=== PATIENT | female | born 1940 | race Caucasian/White ===

== ENCOUNTER 2017-07-27 17:45 | Emergency (ER) | payer MEDICARE, OTHER ==
[~2017-07-27] VITALS: Ht 157.5 cm; Wt 58.1 kg
--- NOTE | 2017-07-27 19:04 | ED Fall/Injury ---
General Stated Complaint: FALL,R WRIST PAIN Source: patient, family Exam Limitations: clinical condition History of Present Illness Date Seen by Provider: Jul 27, 2017 Time Seen by Provider: 18:50 Initial Comments The patient presents to the ER by private conveyance with her significant family and chief complaint that she was out fishing and got tripped up and some fishing line and fell. She thinks she struck her head just lateral whole incident and was rather dizzy afterwards and this concerned her daughter so they brought her to the ER. She does have a history of MS, psoriasis, rheumatoid arthritis and osteoarthritis. She took one of her hydrocodone's and this did not really help the pain in her right wrist. She has some swelling that started up in her right wrist as well. She has no previous injury to this wrist. A little bit of tenderness in her right elbow that is radiating from the wrist. She has a skin tear on her right elbow. She has some minor abrasions on her legs. She is having no dysuria, nausea, fevers chills cough shortness of breath or chest pain. Allergies and Home Medications Allergies Coded Allergies: No Known Drug Allergies (Unverified , 07/27/17) Patient Home Medication List Home Medication List Reviewed: Yes Review of Systems Constitutional: No chills; dizziness (afterwards); No fever, No malaise Eyes: Denies Blindness, Denies Blurred Vision Ears, Nose, Mouth, Throat: denies ear pain, denies ear discharge Respiratory: No cough, No short of breath Cardiovascular: No chest pain, No edema Gastrointestinal: No abdominal pain, No constipation, No diarrhea, No nausea Genitourinary: No discharge, No dysuria Past Rlcuici-Xkaeeu-Sxrweg Hx Patient Social History Alcohol Use: Denies Use Recreational Drug Use: No Smoking Status: Never a Smoker Recent Foreign Travel: No Contact w/Someone Who Travel: No Physical Exam Vital Signs Capillary Refill : General Appearance: WD/WN, no apparent distress HEENT: PERRL/EOMI, pharynx normal Neck: non-tender, full range of motion, supple, normal inspection Cardiovascular: normal peripheral pulses, regular rate, rhythm, no edema Respiratory: chest non-tender, lungs clear, normal breath sounds, no respiratory distress, no accessory muscle use Peripheral Pulses: 2+ Radial Pulses (R), 2+ Radial Pulses (L) Gastrointestinal: normal bowel sounds, non tender, soft, no organomegaly Extremities: normal range of motion, normal capillary refill, other (swelling, deformity and tenderness of the right wrist. Abrasion and small superficial skin tear on the right elbow. Small abrasions that are superficial on bilateral anterior lower extremity.) Neurologic/Psychiatric: alert, normal mood/affect, oriented x 3 Gregory Coma Score Best Eye Response: (4) Open Spontaneously Best Verbal Response: (5) Oriented Best Motor Response: (6) Obeys Commands Gregory Total: 15 Progress/Results/Core Measures Results/Orders My Orders Orders - DIAN ERWIN Wrist, Right, 3 Views Or More (07/27/17 18:55) Ct Head/Cervical Spine Wo (07/27/17 19:00) Elbow, Right, 3 Views (07/27/17 19:00) Fentanyl Injection (Sublimaze Injection (07/27/17 19:15) Fentanyl Injection (Sublimaze Injection (07/27/17 19:15) Ketorolac Injection (Toradol Injection) (07/27/17 20:30) Medications Given in ED Current Medications Medications Dose Ordered Sig/Fredo Route Start Time Stop Time Status Last Admin Dose Admin Fentanyl Citrate 50 mcg ONCE ONCE INJ 07/27/17 19:15 07/27/17 19:16 DC 07/27/17 19:09 50 MCG Progress Progress Note : Time: 20:29 Progress Note Reverse her tong splint and Toradol. The fentanyl did not help her pain very much. Diagnostic Imaging Diagonstic Imaging: Xray Plain Films/CT/US/NM/MRI: elbow Comments NAME: KARTHIKEYAN MAGDALENO [facility] REC#: [id number] PHYSICIAN: DIAN ERWIN MD CC: LINDA SILVERIO MD; DIAN ERWIN Page 1 of 1 RADIOLOGY REPORT VIA [place], [place] CC: LINDA SILVERIO MD; DIAN ERWIN Page 1 of 1 RADIOLOGY REPORT NAME: KARTHIKEYAN MAGDALENO [facility] REC#: [id number] PT STATUS: REG ER : 1940 PHYSICIAN: DIAN ERWIN MD ADMIT DATE: 07/27/17/ER Signed Date of Exam: 07/27/17 ELBOW, RIGHT, 3 VIEWS INDICATION: Fall. Right elbow pain. EXAMINATION: Three views of the right elbow were obtained. FINDINGS: The radius and ulna are in good alignment with capitellum and trochlea. No cortical fractures are demonstrated. There is no joint effusion. There is some soft tissue calcification adjacent to the lateral condyle consistent with old epicondylar ligamentous trauma. IMPRESSION: No acute abnormality is demonstrated. Dictated by: Dictated on workstation # [id number] Dict: 07/27/171934 Trans: 07/27/171938 Interpreted by: LINDA SILVERIO MD Electronically signed by: LINDA SILVERIO MD 07/27/171938 Reviewed: Reviewed by Me Diagonstic Imaging: CT Plain Films/CT/US/NM/MRI: c-spine, head Comments NAME: KARHTIKEYAN MAGDALENO [facility] REC#: [id number] PHYSICIAN: DIAN ERWIN MD CC: LINDA SILVERIO MD; DIAN ERWIN Page 2 of 2 RADIOLOGY REPORT VIA [place], [place] CC: LINDA SILVERIO MD; DIAN ERWIN Page 1 of 1 RADIOLOGY REPORT NAME: KARTHIKEYAN MAGDALENO [facility] REC#: [id number] PT STATUS: REG ER : 1940 PHYSICIAN: DIAN ERWIN MD ADMIT DATE: 07/27/17/ER Signed Date of Exam: 07/27/17 CT HEAD/CERVICAL SPINE WO PROCEDURE: CT head and CT cervical spine without contrast. TECHNIQUE: Multiple contiguous axial images were obtained through the brain and cervical spine without the use of intravenous contrast. Sagittal and coronal reformations through the cervical spine were then performed. CT head without contrast. CT cervical spine films are not currently available for review. FINDINGS: There is no evidence of intracranial hemorrhage. Ventricles and cortical gyral pattern are normal. There are diffuse periventricular white matter changes consistent with chronic small vessel disease. Basal cisterns are clear. CP angles are normal. No extra-axial fluid collections. Bone windows show no evidence of the fracture. Mastoid air cells are well-aerated and clear. IMPRESSION: 1. No acute intracranial abnormalities. 2. Cortical atrophy with diffuse white matter changes consistent with chronic small vessel disease. Dictated by: Dictated on workstation # [id number] Dict: 07/27/171925 Trans: 07/27/171938 Interpreted by: LINDA SILVERIO MD Electronically signed by: LINDA SILVERIO MD 07/27/171938 Reviewed: Reviewed by Me Diagonstic Imaging: Xray Plain Films/CT/US/NM/MRI: other (wrist) Comments NAME: KARTHIKEYAN MAGDALENO [facility] REC#: [id number] PHYSICIAN: DIAN ERWIN MD CC: LINDA SILVERIO MD; DIAN ERWIN Page 1 of 1 RADIOLOGY REPORT VIA [facility]. [place], [place] CC: LINDA SILVERIO MD; DIAN ERWIN Page 1 of 1 RADIOLOGY REPORT NAME: KARTHIKEYAN MAGDALEON [facility] REC#: [id number] PT STATUS: REG ER : 1940 PHYSICIAN: DIAN ERWIN MD ADMIT DATE: 07/27/17/ER Signed Date of Exam: 07/27/17 WRIST, RIGHT, 3 VIEWS OR MORE INDICATION: Fall. Right wrist pain. EXAMINATION: Three views of the right wrist were obtained. FINDINGS: The radiocarpal joint is in good alignment. Carpal bones show no evidence of subluxation. Diffuse degenerative arthritic changes are noted. There is chondrocalcinosis of the triangle fibrocartilage. There is an articular fracture present along the lateral aspect of the distal radius. This does not appear to be displaced. There is subcortical cystic change along the lateral aspect of the scaphoid. IMPRESSION: 1. Intra-articular fracture along the lateral aspect of the distal right radius. 2. Diffuse degenerative arthritic changes. Dictated by: Dictated on workstation # [id number] Dict: 07/27/171930 Trans: 07/27/171938 Interpreted by: LINDA SILVERIO MD Electronically signed by: LINDA SILVERIO MD 07/27/171938 Reviewed: Reviewed by Me Departure Impression Primary Impression: Fracture of radius Qualified Codes: S52.571A - Other intraarticular fracture of lower end of right radius, initial encounter for closed fracture Disposition: HOME, SELF-CARE Condition: Stable Departure-Patient Inst. Decision time for Depature: 20:29 Referrals: RENAY TOWNSEND MD (PCP) Primary Care Physician RENAY CID MD Patient Instructions: Wrist Fracture (DC) Add. Discharge Instructions: Please call Drs. Cid at his clinic Saturday morning and request an appointment to be seen that week. Keep this went on. If he has increased swelling pain or redness or discoloration of your hand you should take the splint off raise above the level of your heart and apply ice and follow-up sooner or return to the ER if it does not improve in about 20 minutes. Apply ice over the fracture for 20 minutes every 4 hours for the first 3 days. Use Tylenol 1000 mg every 8 hours in addition to ibuprofen 800 mg every 8 hours. If this does not help you can use 1 or 2 hydrocodone tablets every 6 hours as needed. Scripts Oxycodone HCl/Acetaminophen (Oxycodone-Acetaminophen 5-325) 1 Each Tablet 1-2 EACH PO Q6H PRN for BREAKTHROUGH PAIN, #20 TAB 0 Refills Prov: DIAN ERWIN 07/27/17 Copy Copies To 1: RENAY CID MD, TITUS J Jul 27, 2017 19:04
[2017-07-27] MEDS ORDERED: fentaNYL INJECTION 100 MCG/2 ML AMP IJ ONE (19:15)
[2017-07-27] MEDS ORDERED: fentaNYL INJECTION 100 MCG/2 ML AMP INJ ONE (19:15)
--- NOTE | 2017-07-27 19:33 | Diagnostic Imaging Report ---
PROCEDURE: CT head and CT cervical spine without contrast. TECHNIQUE: Multiple contiguous axial images were obtained through the brain and cervical spine without the use of intravenous contrast. Sagittal and coronal reformations through the cervical spine were then performed. CT head without contrast. CT cervical spine films are not currently available for review. FINDINGS: There is no evidence of intracranial hemorrhage. Ventricles and cortical gyral pattern are normal. There are diffuse periventricular white matter changes consistent with chronic small vessel disease. Basal cisterns are clear. CP angles are normal. No extra-axial fluid collections. Bone windows show no evidence of the fracture. Mastoid air cells are well-aerated and clear. IMPRESSION: 1. No acute intracranial abnormalities. 2. Cortical atrophy with diffuse white matter changes consistent with chronic small vessel disease. Dictated by: Dictated on workstation # [id number]
--- NOTE | 2017-07-27 19:39 | Diagnostic Imaging Report ---
INDICATION: Fall. Right wrist pain. EXAMINATION: Three views of the right wrist were obtained. FINDINGS: The radiocarpal joint is in good alignment. Carpal bones show no evidence of subluxation. Diffuse degenerative arthritic changes are noted. There is chondrocalcinosis of the triangle fibrocartilage. There is an articular fracture present along the lateral aspect of the distal radius. This does not appear to be displaced. There is subcortical cystic change along the lateral aspect of the scaphoid. IMPRESSION: 1. Intra-articular fracture along the lateral aspect of the distal right radius. 2. Diffuse degenerative arthritic changes. Dictated by: Dictated on workstation # [id number]
--- NOTE | 2017-07-27 19:42 | Diagnostic Imaging Report ---
INDICATION: Fall. Right elbow pain. EXAMINATION: Three views of the right elbow were obtained. FINDINGS: The radius and ulna are in good alignment with capitellum and trochlea. No cortical fractures are demonstrated. There is no joint effusion. There is some soft tissue calcification adjacent to the lateral condyle consistent with old epicondylar ligamentous trauma. IMPRESSION: No acute abnormality is demonstrated. Dictated by: Dictated on workstation # [id number]
[2017-07-27] MEDS ORDERED: KETOROLAC 30 MG/ML VIAL IVP ONE (20:30)
[2017-07-27] MEDS ORDERED: OXYC-471 PO (20:30)
[2017-07-27 20:48] VITALS: BP 172/81
== END 2017-07-27 20:48 | disposition home or self-care (01) ==
LOC: EDUNIT# 17:45 → ER 17:47
DX: S52.571A Other intraarticular fracture of lower end of right radius, initial encounter for closed fracture (principal); R40.2142 Coma scale, eyes open, spontaneous, at arrival to emergency department; R40.2252 Coma scale, best verbal response, oriented, at arrival to emergency department; R40.2362 Coma scale, best motor response, obeys commands, at arrival to emergency department; M06.9 Rheumatoid arthritis, unspecified; W18.09XA Striking against other object with subsequent fall, initial encounter
CPT/HCPCS: 29105; 70450; 72125; 73080; 73110; 96372; 96374

== ENCOUNTER 2020-09-18 15:41 | Emergency (ER) | payer MEDICARE, OTHER ==
[~2020-09-18] VITALS: Ht 157 cm; Wt 65.0 kg
[~2020-09-18 15:41] MED LIST: OXYC1TAB11 PO
[2020-09-18] MEDS ORDERED: ASPIRIN 81 MG CHEW (CHILDREN'S ASA) PO ONE (16:00)
[2020-09-18] MEDS ORDERED: LACTATED RINGERS 1,000 ML IV ONE (16:01)
[2020-09-18] MEDS ORDERED: MECLIZINE 25 MG (ANTIVERT) TAB ONE (16:02)
[2020-09-18 16:13] LABS: BASOPHILS % (AUTO) 0 % (0-10); BILIRUBIN,URINE NEGATIVE (NEGATIVE); CLARITY,URINE CLEAR; COLOR,URINE YELLOW; EOSINOPHILS # (AUTO) 0.2 10^3/uL (0.0-0.3); EOSINOPHILS % (AUTO) 2 % (0-10); GLUCOSE, URINE (UA) NEGATIVE (NEGATIVE); HEMATOCRIT 42 % (35-52); HEMOGLOBIN 13.7 g/dL (11.5-16.0); KETONES,URINE NEGATIVE (NEGATIVE); LEUKOCYTE ESTERASE ,URINE TRACE (NEGATIVE); LYMPHOCYTES # (AUTO) 2.2 10^3/uL (1.0-4.0); LYMPHOCYTES % (AUTO) 31 % (12-44); MEAN CORPUSCULAR HEMOGLOBIN 28 pg (25-34); MEAN CORPUSCULAR HGB CONC 33 g/dL (32-36); MEAN CORPUSCULAR VOLUME 85 fL (80-99); MONOCYTES # (AUTO) 0.6 10^3/uL (0.0-1.0); MONOCYTES % (AUTO) 9 % (0-12); NEUTROPHILS # (AUTO) 4.1 10^3/uL (1.8-7.8); NEUTROPHILS % (AUTO) 58 % (42-75); NITRITE,URINE NEGATIVE (NEGATIVE); PH,URINE 5.5 (5-9); PLATELET COUNT 373 10^3/uL (130-400); PROTEIN,URINE NEGATIVE (NEGATIVE); WHITE BLOOD COUNT 7.2 10^3/uL (4.3-11.0)
[2020-09-18] MEDS ORDERED: ANTACID SUSP 30 ML UDC (MYLANTA) PO ONE (16:15)
[2020-09-18] MEDS ORDERED: LIDOCAINE 2% VISCOUS 15 ML UDC PO ONE (16:15)
[2020-09-18] MEDS ORDERED: ANTACID SUSP 30 ML UDC (MYLANTA) ONE (16:17)
--- NOTE | 2020-09-18 16:21 | ED General ---
General Chief Complaint: Abdominal/GI Problems Stated Complaint: CHEST PAIN,SYNCOPE History of Present Illness Date Seen by Provider: Sep 18, 2020 Time Seen by Provider: 15:50 Initial Comments 79 year old female presented with pain under her left breast that radiates internally, towards her chest. No hx of cardiac problems, she sees specialist in [place] for rheumatoid arthritis and MS. No recent known exposure to COVID patient, she had mild case in Nov 2018 and received both Moderna vaccines in spring 2020. Today she has noticed some diarrhea approximately 3 episodes and vertigo. She has had limited fluid or solid intake. She denies any vomiting but had nausea. Timing/Duration: 4-6 Hours Severity: Mild Associated Systoms: No Cough, No Diaphoresis, No Fever/Chills, No Headaches; Loss of Appetite, Malaise, Nausea/Vomiting; No Shortness of Air, No Syncope, No Weakness (KISHA OCONNELL) Allergies and Home Medications Allergies Coded Allergies: Penicillins (Verified Allergy, Intermediate, 09/18/20) Home Medications Oxycodone HCl/Acetaminophen 1 Each Tablet, 1-2 EACH PO Q6H PRN for BREAKTHROUGH PAIN Prescribed by: DIAN ERWIN on 07/27/172029 Patient Home Medication List Home Medication List Reviewed: Yes (KISHA OCONNELL) Review of Systems Review of Systems Constitutional: no symptoms reported, see HPI Cardiovascular: see HPI, chest pain Skin: no symptoms reported, see HPI; No rash (KISHA OCONNELL) All Other Systems Reviewed Negative Unless Noted: Yes (KISHA OCONNELL) Past Brkotog-Bpfvoc-Qtikwu Hx Seasonal Allergies Seasonal Allergies: No (KISHA OCONNELL) Past Medical History Surgeries: No Respiratory: No Cardiac: No Neurological: Yes (CVA) Headaches /Migraines, Multiple Sclerosis Genitourinary: No Gastrointestinal: No Musculoskeletal: Yes (Osteoarthritis) Rheumatoid Arthritis Endocrine: No HEENT: No Cancer: No Psychosocial: No Integumentary: No (KISHA OCONNELL) Family Medical History Reviewed Nursing Family Hx (KISHA OCONNELL) Physical Exam Vital Signs Vital Signs - First Documented 09/18/20 16:11 Temp 36.7 Pulse 79 Resp 18 B/P (MAP) 160/82 (108) Pulse Ox 100 O2 Delivery Room Air (WILLEM COLLINS MD) Vital Signs Capillary Refill : (KISHA OCONNELL) Height, Weight, BMI Height: 5'2.00" Weight: 128lbs. oz. 58.986058wy; BMI Method:Stated General Appearance: No Apparent Distress, WD/WN Eyes: Bilateral Eye Normal Inspection, Bilateral Eye PERRL, Bilateral Eye EOMI HEENT: PERRL/EOMI, TMs Normal, Normal ENT Inspection, Pharynx Normal Neck: Full Range of Motion, Normal Inspection, Non Tender Respiratory: Lungs Clear, Normal Breath Sounds, Other (tenderness to palpation under left breast, no skin changes) Cardiovascular: Regular Rate, Rhythm, No Edema, No Murmur, Normal Peripheral Pulses Gastrointestinal: Normal Bowel Sounds, Non Tender, Soft; No Distended, No Guarding, No Mass, No Rebound, No Tenderness Back: Normal Inspection, No CVA Tenderness, No Vertebral Tenderness Extremity: Normal Capillary Refill, Normal Inspection, Normal Range of Motion, Non Tender, No Pedal Edema Neurologic/Psychiatric: Alert, Oriented x3, No Motor/Sensory Deficits, Normal Mood/Affect Skin: Normal Color, Warm/Dry (KISHA OCONNELL) Progress/Results/Core Measures Suspected Sepsis SIRS Temperature: Pulse: Respiratory Rate: Laboratory Tests 09/18/20 16:00: White Blood Count 7.2 Blood Pressure / Mean: Laboratory Tests 09/18/20 16:00: Creatinine 0.80, INR Comment 0.9, Platelet Count 373, Total Bilirubin 0.3 (KISHA OCONNELL) Results/Orders Lab Results Laboratory Tests Test 09/18/20 16:00 Range/Units White Blood Count 7.2 4.3-11.0 10^3/uL Red Blood Count 4.94 3.80-5.11 10^6/uL Hemoglobin 13.7 11.5-16.0 g/dL Hematocrit 42 35-52 % Mean Corpuscular Volume 85 80-99 fL Mean Corpuscular Hemoglobin 28 25-34 pg Mean Corpuscular Hemoglobin Concent 33 32-36 g/dL Red Cell Distribution Width 13.6 10.0-14.5 % Platelet Count 373 130-400 10^3/uL Mean Platelet Volume 8.0 L 9.0-12.2 fL Immature Granulocyte % (Auto) 0 % Neutrophils (%) (Auto) 58 42-75 % Lymphocytes (%) (Auto) 31 12-44 % Monocytes (%) (Auto) 9 0-12 % Eosinophils (%) (Auto) 2 0-10 % Basophils (%) (Auto) 0 0-10 % Neutrophils # (Auto) 4.1 1.8-7.8 10^3/uL Lymphocytes # (Auto) 2.2 1.0-4.0 10^3/uL Monocytes # (Auto) 0.6 0.0-1.0 10^3/uL Eosinophils # (Auto) 0.2 0.0-0.3 10^3/uL Basophils # (Auto) 0.0 0.0-0.1 10^3/uL Immature Granulocyte # (Auto) 0.0 0.0-0.1 10^3/uL Prothrombin Time 12.4 12.2-14.7 SEC INR Comment 0.9 0.8-1.4 Activated Partial Thromboplast Time 30 24-35 SEC Urine Color YELLOW Urine Clarity CLEAR Urine pH 5.5 5-9 Urine Specific [place] 1.010 L 1.016-1.022 Urine Protein NEGATIVE NEGATIVE Urine Glucose (UA) NEGATIVE NEGATIVE Urine Ketones NEGATIVE NEGATIVE Urine Nitrite NEGATIVE NEGATIVE Urine Bilirubin NEGATIVE NEGATIVE Urine Urobilinogen 0.2 < = 1.0 MG/DL Urine Leukocyte Esterase TRACE H NEGATIVE Urine RBC (Auto) NEGATIVE NEGATIVE Urine RBC NONE /HPF Urine WBC 0-2 /HPF Urine Crystals NONE /LPF Urine Bacteria TRACE /HPF Urine Casts NONE /LPF Urine Mucus NEGATIVE /LPF Urine Culture Indicated NO Sodium Level 144 135-145 MMOL/L Potassium Level 3.4 L 3.6-5.0 MMOL/L Chloride Level 107 98-107 MMOL/L Carbon Dioxide Level 24 21-32 MMOL/L Anion Gap 13 5-14 MMOL/L Blood Urea Nitrogen 8 7-18 MG/DL Creatinine 0.80 0.60-1.30 MG/DL Estimat Glomerular Filtration Rate 70 BUN/Creatinine Ratio 10 Glucose Level 114 H 70-105 MG/DL Calcium Level 9.4 8.5-10.1 MG/DL Corrected Calcium 9.2 8.5-10.1 MG/DL Magnesium Level 2.2 1.6-2.4 MG/DL Total Bilirubin 0.3 0.1-1.0 MG/DL Aspartate Amino Transf (AST/SGOT) 59 H 5-34 U/L Alanine Aminotransferase (ALT/SGPT) 37 0-55 U/L Alkaline Phosphatase 116 40-136 U/L Myoglobin 153.0 H 10.0-92.0 NG/ML Troponin I < 0.028 <0.028 NG/ML Total Protein 7.7 6.4-8.2 GM/DL Albumin 4.3 3.2-4.5 GM/DL Influenza Type A (RT-PCR) Not Detected Not Detecte Influenza Type B (RT-PCR) Not Detected Not Detecte SARS-CoV-2 RNA (RT-PCR) Not Detected Not Detecte (WILLEM COLLINS MD) Medications Given in ED Current Medications Medications Dose Ordered Sig/Fredo Route Start Time Stop Time Status Last Admin Dose Admin Al Hydrox/Mg Hydrox/Simethicone 30 ml ONCE ONCE PO 09/18/20 16:15 09/18/20 16:16 DC 09/18/20 16:21 30 ML Aspirin 324 mg ONCE ONCE PO 09/18/20 16:00 09/18/20 16:01 DC 09/18/20 16:20 324 MG Lactated Ringer's 1,000 ml @ ud STK-MED ONCE IV 09/18/20 16:01 09/18/20 16:05 DC 09/18/20 16:20 1,000 MLS/HR Lidocaine HCl 15 ml ONCE ONCE PO 09/18/20 16:15 09/18/20 16:16 DC 09/18/20 16:21 15 ML Meclizine HCl 25 mg STK-MED ONCE .ROUTE 09/18/20 16:02 09/18/20 16:05 DC 09/18/20 16:18 25 MG (WILLEM COLLINS MD) Vital Signs/I&O 09/18/20 09/18/20 16:11 17:06 Temp 36.7 36.7 Pulse 79 79 Resp 18 18 B/P (MAP) 160/82 (108) 160/82 (108) Pulse Ox 100 100 O2 Delivery Room Air (WILLEM COLLINS MD) Vital Signs/I&O Capillary Refill : (KISHA OCONNELL) Progress Note : Time: 15:50 Progress Note Patient seen and evaluated, will obtain labs, EKG and chest x-ray. 1620 patient given GI cocktail, within 5 minutes she reports complete resolution of her symptoms. Awaiting labs. 1700 labs, chest x-ray and EKG all normal. The patient continues to have no further chest pain since the GI cocktail. Discharge instructions and return precautions reviewed with the patient. (KISHA OCONNELL) ECG Initial ECG Impression Date: Sep 18, 2020 Initial ECG Impression Time: 15:55 Initial ECG Rate: 83 Initial ECG Rhythm: Normal Sinus Initial ECG Intervals: Normal Initial ECG Intervals MI 180, QRSD 98, QT 382, QTc 449. [place] P0 QRS -18 T103 Initial ECG Comparisson: No Previous ECG Available (KISHA OCONNELL) Departure Impression Primary Impression: GERD (gastroesophageal reflux disease) Qualified Codes: K21.9 - Gastro-esophageal reflux disease without esophagitis Additional Impression: Vertigo Disposition: HOME, SELF-CARE Condition: Improved Departure-Patient Inst. Decision time for Depature: 16:30 (KISHA OCONNELL) Referrals: RENAY TOWNSEND MD (PCP/Family) Primary Care Physician Patient Instructions: Acid Reflux and GERD in Adults (DC), Vertigo (a Type of Dizziness) (DC) Add. Discharge Instructions: Clear liquid diet for the next 3 to 4 hours and then progressed to bland diet as tolerated. Continue your own Omperazole and also begin taking Pepcid 20 mg twice a day, [id number]. You can take meclizine 25 mg every 8 hours for dizziness, [id number]-muz-[id number] Follow-up with your primary care provider if symptoms are not improving or worsen. Return to the emergency department for new, urgent healthcare needs. All discharge instructions reviewed with patient and/or family. Voiced understanding. ATTENDING PHYSICIAN NOTE: I was physically present as attending physician in the emergency department during the care of this patient, but I was not directly involved in the decision making or delivery of care for this patient. (WILLEM COLLINS MD) KISHA OCONNELL Sep 18, 2020 16:21 WILLEM COLLINS MD Sep 18, 2020 20:57
[2020-09-18 16:24] LABS: BACTERIA,URINE TRACE /HPF; WBC,URINE 0-2 /HPF
[2020-09-18 16:27] LABS: ALBUMIN 4.3 GM/DL (3.2-4.5)
[2020-09-18 16:28] LABS: POTASSIUM 3.4 MMOL/L (3.6-5.0)
[2020-09-18 16:29] LABS: CALCIUM 9.4 MG/DL (8.5-10.1)
[2020-09-18 16:30] LABS: INR 0.9 (0.8-1.4); PROTHROMBIN TIME PATIENT 12.4 SEC (12.2-14.7); TOTAL PROTEIN 7.7 GM/DL (6.4-8.2)
[2020-09-18 16:32] LABS: BILIRUBIN,TOTAL 0.3 MG/DL (0.1-1.0)
[2020-09-18 16:34] LABS: CREATININE SERUM 0.8 MG/DL (0.60-1.30)
[2020-09-18 16:37] LABS: MAGNESIUM 2.2 MG/DL (1.6-2.4)
--- NOTE | 2020-09-18 17:04 | Diagnostic Imaging Report ---
EXAMINATION: Chest radiograph, portable AP view. DATE: 09/18/2020 4:56 PM INDICATION: 79-year-old female, epigastric pain. COMPARISON: None. FINDINGS: There is cervical spine hardware. Heart size and mediastinal contours are unremarkable. There is no identified pneumothorax. There is no large pleural effusion. There is no identified focal airspace consolidation. IMPRESSION: No identified acute cardiopulmonary abnormality. Dictated by: Dictated on workstation # [id number]
[2020-09-18 17:06] VITALS: BP 160/82
== END 2020-09-18 17:07 | disposition home or self-care (01) ==
LOC: EDUNIT# 15:41 → ER 15:44
DX: K21.9 Gastro-esophageal reflux disease without esophagitis (principal); R42 Dizziness and giddiness; Z20.822 Contact with and (suspected) exposure to COVID-19
CPT/HCPCS: 36415; 71045; 80053; 81000; 83735; 83874; 84484; 85025; 85610; 85730; 87636; 93005; 93041